=== PATIENT | female | born 1990 | race African-American/Black ===

== ENCOUNTER 2020-01-24 06:15 | Emergency (ER) | payer BC ==
[~2020-01-24] VITALS: Ht 167.6 cm; Wt 77.1 kg
[2020-01-24] MEDS ORDERED: AMITRIPTYLINE H25 M4 PO (06:23)
[2020-01-24 07:12] LABS: TOTAL BILIRUBIN 0.1 mg/dL (<0.1-1.0); TOTAL PROTEIN 2.5 g/dL (6.4-8.2)
[2020-01-24 07:24] LABS: ABSOLUTE EOSINOPHILS 0.2 thou/uL (0.0-0.7); ABSOLUTE LYMPHOCYTES 1.3 thou/uL (0.8-5.3); ABSOLUTE MONOCYTES 0.2 thou/uL (0.0-1.2); ABSOLUTE NEUTROPHILS 6.6 thou/uL (1.6-8.1); BASOPHILS 0.4 %; EOSINOPHILS 2.5 %; HEMOGLOBIN 11.3 gm/dL (12.0-15.0); LYMPHOCYTES 15.3 %; MCH 26.6 pg (26.0-34.0); MCHC 31.4 g/dL (28.0-37.0); MCV 84.6 fL (80.0-100.0); MONOCYTES 2.8 %; MPV 8.6 fl. (7.2-11.1); NUCLEATED RBCS 0 /100WBC; PLATELET COUNT* 189 thou/uL (150-400); RBC 4.26 mil/uL (4.20-5.00); RDW-CV 14.1 % (10.5-14.5); WBC 8.3 thou/uL (4.0-11.0)
[2020-01-24 07:53] LABS: CALCIUM 7.8 mg/dL (8.5-10.1); CREATININE 0.9 mg/dL (0.6-1.3); POTASSIUM 4.1 mmol/L (3.5-5.1)
[2020-01-24 16:35] VITALS: BP 103/57
== END 2020-01-24 16:35 | disposition still patient (30) ==
LOC: M.ERS 06:15
PROVIDERS: Personal Emergency Response Attendant
DX: I95.9 Hypotension, unspecified (principal); R10.10 Upper abdominal pain, unspecified; Z20.828 Contact with and (suspected) exposure to other viral communicable diseases